=== PATIENT | female | born 1960 | race Caucasian/White ===

== ENCOUNTER 2023-06-26 18:57 | Emergency (ER) | payer OTHER ==
[~2023-06-26] VITALS: Ht 162.6 cm; Wt 70.1 kg
[2023-06-26 19:20] VITALS: BP 177/93; PULSE 67; RESP 18; TEMP 97.7; O2SAT 97
[2023-06-26] MEDS ORDERED: CEPH-588 PO (21:06)
[2023-06-26] MEDS ORDERED: SULF-59 PO (21:06)
[2023-06-26 21:20] VITALS: BP 177/93; PULSE 67; RESP 18; TEMP 97.7; O2SAT 97
== END 2023-06-26 21:20 | disposition home or self-care (01) ==
LOC: MED 18:57
DX: L03.116 Cellulitis of left lower limb (principal); E11.9 Type 2 diabetes mellitus without complications; Z79.899 Other long term (current) drug therapy
CPT/HCPCS: 99283